=== PATIENT | female | born 1960 | race African-American/Black ===

== ENCOUNTER 2020-07-16 21:51 | Emergency (ER) | payer MEDICARE, OTHER ==
[~2020-07-16] VITALS: Ht 177.8 cm; Wt 95.3 kg
[2020-07-16 22:00] VITALS: BP 142/83
--- NOTE | 2020-07-16 22:00 | NUR ---
ED Nurse Note: Patient brought in by ambulance [id number] from home d/t right leg pain and palpitations, VSS stable upon assessment. patient aao x 4 and ambulatory with weak gait. patient denies injury/trauma, reports leg pain only occurs upon movement, 8/10 aching and radiates to her right hip. Patient changed into gown and placed on monitoring coordinator. no acute distress noted.
[2020-07-16] MEDS ORDERED: Ketorolac 30mg Inj IV ONE (22:15)
--- NOTE | 2020-07-16 22:17 | Emergency Room Report ---
History of Present Illness General Chief Complaint: Pain Source: Patient, EMS Present Illness HPI This is a 60-year-old female with history of high blood pressure. She presents with chief complaint of palpitation and also right leg pain. Pain in her right leg is been ongoing for 2 to 3 days. She said the pain started her back and weight down her leg posteriorly. Worse with walking straight. Better bending forward. Pain is sharp in nature. 8 out of 10. Has not taken any for this. No swelling. No shortness of breath. No fever or chills. Her second complaint is palpitation. Onset tonight. She called 911 because of her lower extremity pain. And it took her blood pressure systolic was over 200. She says she became kind of anxious and has some fluttery sensation in her chest. Denies any pain. No nausea no vomiting. No shortness of breath. No exertional component. She took her night dose of blood pressure medication before being loaded into the ambulance. She said that her blood pressure normally is in the normal range at home. She checks it regularly. 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: No Patient History Past Medical History: see triage record, old chart reviewed, HTN Past Surgical History: none Pertinent Family History: none Social History: Denies: smoking Now: No Immunizations: other Reviewed Nursing Documentation: PMH: Agreed; PSxH: Agreed Nursing Documentation-PMH Past Medical History: No History, Except For Hx Hypertension: Yes Review of Systems Eye: Denies: eye pain, blurred vision ENT: Denies: ear pain, nose congestion, throat swelling Respiratory: Denies: cough, shortness of breath Cardiovascular: Reports: palpitations; Denies: chest pain Gastrointestinal: Denies: abdominal pain, diarrhea, nausea, vomiting Musculoskeletal: Reports: back pain, muscle pain; Denies: joint pain Skin: Denies: rash Neurological: Denies: headache, numbness Endocrine: Denies: increased thirst, increased urine Hematologic/Lymphatic: Denies: easy bruising All Other Systems: negative except mentioned in HPI Physical Exam Vital Signs Date Time Temp Pulse Resp B/P (MAP) Pulse Ox O2 Delivery O2 Flow Rate FiO2 11/23/20 21:50 98.4 85 16 216/118 (150) 98 Room Air Vitals with high blood pressure Sp02 EP Interpretation: reviewed, normal General Appearance: well appearing, no apparent distress, alert Head: normocephalic, atraumatic Eyes: bilateral eye PERRL, bilateral eye EOMI ENT: hearing grossly normal, normal pharynx Neck: full range of motion, supple, no meningismus Respiratory: chest non-tender, lungs clear, normal breath sounds Cardiovascular #1: regular rate, rhythm, no murmur Gastrointestinal: normal bowel sounds, non tender, no mass, no organomegaly, no bruit, non-distended Musculoskeletal: back normal - Tenderness to the lower lumbar area on the right., normal range of motion, gait/station normal Psychiatric: mood/affect normal Medical Decision Making Diagnostic Impression: Primary Impression: Sciatica of right side Additional Impressions: Hypertension Qualified Codes: I10 - Essential (primary) hypertension Palpitation ER Course Patient presents with back pain rating to her right leg. This consistent with sciatica. No evidence of cauda equina syndrome, spinal epidural abscess or neoplastic process. Negative for DVT. No evidence of endorgan damage. EKG is normal. Troponin negative. Will discharge home. EKG Diagnostic Results Troponin ordered: Yes Rate: normal Rhythm: NSR ST Segments: no acute changes Rhythm Strip Diag. Results EP Interpretation: yes Rate: 75 Rhythm: NSR, no PVC's, no ectopy Chest X-Ray Diagnostic Results Chest X-Ray Diagnostic Results : Chest X-Ray Ordered: Yes # of Views/Limited/Complete: 1 View Indication: Chest Pain EP Interpretation: Yes Interpretation: no consolidation, no effusion, no pneumothorax, no acute cardiopulmonary disease Impression: No acute disease Electronically Signed by: Aden Jackson MD CT/MRI/US Diagnostic Results CT/MRI/US Diagnostic Results : Imaging Test Ordered: Right leg ultrasound Impression Negative for DVT per radiologist Last Vital Signs Date Time Temp Pulse Resp B/P (MAP) Pulse Ox O2 Delivery O2 Flow Rate FiO2 07/16/20 21:50 98.4 85 16 216/118 (150) 98 Room Air Status: improved Disposition: HOME, SELF-CARE Condition: Stable Scripts Prednisone* (PREDNISONE*) 20 Mg Tablet 40 MG ORAL DAILY, #10 TAB Prov: Aden Jackson MD 07/17/20 Ibuprofen* (MOTRIN*) 600 Mg Tablet 600 MG ORAL Q6H PRN for For Pain, #30 TAB 0 Refills Prov: Aden Jackson MD 07/17/20 Hydrocodone/Acetaminophen 5-325* (HYDROCODONE/ACETAMINOPHEN 5-325*) 1 Each Tablet 1 TAB ORAL Q6H PRN for For Pain, #20 TAB 0 Refills Prov: Aden Jackson MD 07/17/20 Additional Instructions: Follow-up with your doctor in 7 days. If continue with pain, you may need an outpatient MRI of your back. Check your blood pressure. If remains elevated, increase your felodipine to 10 mg a day. Aden Jackson MD Jul 16, 2020 22:17
[2020-07-16 22:53] LABS: BASOPHILS % (AUTO) 0.8 % (0.0-2.0); EOSINOPHILS % (AUTO) 1.3 % (0.0-3.0); HEMATOCRIT 40.4 % (37.0-47.0); HEMOGLOBIN 13.6 G/DL (12.0-16.0); MEAN CORPUSCULAR VOLUME 97 FL (80-99); NEUTROPHILS % (AUTO) 46.9 % (45.0-75.0); PLATELET COUNT 255 K/UL (150-450); RED BLOOD COUNT 4.16 M/UL (4.20-5.40); RED CELL DISTRIBUTION WIDTH 12.4 % (11.6-14.8); WHITE BLOOD COUNT 5.7 K/UL (4.8-10.8)
[2020-07-16 23:04] LABS: ANION GAP 7 mmol/L (5-15); BLOOD UREA NITROGEN 10 mg/dL (7-18); CALCIUM 9.5 MG/DL (8.5-10.1); CARBON DIOXIDE 30 MMOL/L (21-32); CHLORIDE 104 MMOL/L (98-107); CREATININE 0.7 MG/DL (0.55-1.30); POTASSIUM 3.2 MMOL/L (3.5-5.1); SODIUM 141 MMOL/L (136-145)
[2020-07-16 23:07] LABS: ALANINE AMINOTRANSFERASE 23 U/L (12-78); ALBUMIN 3.8 G/DL (3.4-5.0); ALBUMIN/GLOBULIN RATIO 0.8 (1.0-2.7); ALKALINE PHOSPHATASE 112 U/L (46-116); ASPARTATE AMINO TRANSFERASE 21 U/L (15-37); BILIRUBIN,TOTAL 0.3 MG/DL (0.2-1.0)
[2020-07-17] MEDS ORDERED: HYDROCODON-ACE1 EA15 ORAL (01:11)
[2020-07-17] MEDS ORDERED: PREDNISONE20 MG ORAL (01:11)
[2020-07-17] MEDS ORDERED: IBUPROFEN600 M1 ORAL (01:11)
[2020-07-17 01:20] VITALS: BP 133/79
--- NOTE | 2020-07-17 01:20 | NUR ---
ER DISCHARGE NOTE: Patient is cleared to be discharged per ERMD, pt is aox4, on room air, with stable vital signs. pt was given dc and prescription instructions, pt was able to verbalize understanding, pt id band and iv site removed intact without complications. pt is able to ambulate. pt took all belongings. pt stable condition upon discharge.
--- NOTE | 2020-07-17 16:26 | Diagnostic Imaging Report ---
Indication: Chest pain Technique: One view of the chest Comparison: none Findings: Lungs and pleural spaces are clear. Heart size is normal. Impression: No acute process
--- NOTE | 2020-07-17 16:28 | Diagnostic Imaging Report ---
Indication: Right leg pain for 5 days Technique: Grayscale and duplex images of the right lower extremity veins Comparison: None Findings: On the right, grayscale and duplex images demonstrate no evidence of intraluminal thrombus. Normal phasic Doppler waveforms, demonstrating normal augmentation response and no evidence of valvular insufficiency. Greater saphenous vein(s) and tibial veins are patent. Normal compressibility. Impression: Negative for evidence of lower extremity deep venous thrombosis on the right
== END 2020-07-17 01:20 | disposition home or self-care (01) ==
LOC: EDBD 21:51 → EMR 22:26
DX: M54.31 Sciatica, right side (principal); I10 Essential (primary) hypertension; R00.2 Palpitations
CPT/HCPCS: 36415; 71045; 80053; 84484; 85025; 85379; 93005; 93971; 96374; 99284; J1885